=== PATIENT | male | born 1980 | race Caucasian/White ===

== ENCOUNTER 2021-06-06 19:50 | Emergency (ER) | payer SELFPAY ==
[~2021-06-06] VITALS: Ht 157.5 cm; Wt 83.9 kg
[2021-06-06] MEDS ORDERED: KETOROLAC TROMETHAMINE INJ 60 MG/2 ML VIAL IM ONE (20:30)
[2021-06-06] MEDS ORDERED: KETOROLAC TROMETHAMINE INJ 30 MG/ML VIAL ONE (20:32)
[2021-06-06] MEDS ORDERED: NAPR500T6 PO (21:15)
[2021-06-06 21:29] VITALS: BP 132/90
--- NOTE | 2021-06-06 21:29 | NUR ---
Patient discharged to home in stable condition. Written and verbal after care instructions given. Patient verbalizes understanding of instruction.
== END 2021-06-06 21:29 | disposition home or self-care (01) ==
LOC: ER 20:13
DX: M25.512 Pain in left shoulder (principal); M25.561 Pain in right knee; M25.562 Pain in left knee; V43.92XA Unspecified car occupant injured in collision with other type car in traffic accident, initial encounter; Y93.89 Activity, other specified; Y92.89 Other specified places as the place of occurrence of the external cause; Y99.8 Other external cause status
CPT/HCPCS: 71045; 73030; 73564; 96372; 99284; J1885